=== PATIENT | male | born 1955 | race Caucasian/White ===

== ENCOUNTER 2025-04-03 10:47 | Outpatient (CLI) | payer MEDICARE, SELFPAY ==
--- NOTE | ~2025-04-03 | XR_ITS ---
EXAMINATION: XR hand RT min 3V DATE: 04/03/2025 11:16 INDICATION: Pain in right hand. Bump on posterior wrist. TECHNIQUE: 3 images of the right hand were obtained. COMPARISON: None. FINDINGS: No acute fracture. No dislocation. Mild to moderate narrowing throughout the carpal rows and moderate narrowing of the radiocarpal joint space. Mild joint space narrowing throughout the metacarpophalangeal joints and interphalangeal joints. There is a 7 mm well-circumscribed ossific density along the dorsum of the posterior carpal row possibly an old triquetral fracture. Other etiologies are possible. There is a 6 mm ossific protrusion from the distal phalanx of the thumb possibly an osteochondroma.. IMPRESSION: 1. No acute fracture. No dislocation. 2. There is a 7 mm well-circumscribed ossific density along the dorsal aspect of the posterior carpal row possibly an old triquetral fracture. Other etiologies are possible. 3. There is a 6 mm ossific protrusion from the distal phalanx of the thumb possibly an osteochondroma. Other etiologies are possible. No comparison studies are available. Reviewed, dictated and finalized at location Q. IMPRESSION: 1. No acute fracture. No dislocation. 2. There is a 7 mm well-circumscribed ossific density along the dorsal aspect o f the posterior carpal row possibly an old triquetral fracture. Other etiologie s are possible. 3. There is a 6 mm ossific protrusion from the distal phalanx of the thumb poss ibly an osteochondroma. Other etiologies are possible. No comparison studies ar e available.
== END 2025-04-03 10:48 | disposition home or self-care (01) ==
PROVIDERS: PCP Family Medicine; Visit Provider Family Medicine
DX: M85.841 Other specified disorders of bone density and structure, right hand (principal); M89.341 Hypertrophy of bone, right hand
CPT/HCPCS: 73130